=== PATIENT | female | born 1935 | race Caucasian/White ===

== ENCOUNTER 2018-05-24 12:54 | Observation (INO) ==
[2018-05-24] MEDS ORDERED: ONDANSETRON 4 MG/2 ML VIAL IV STA (13:10)
[2018-05-24] MEDS ORDERED: ASPIRIN 325 MG TABLET PO STA (13:10)
[2018-05-24 13:22] LABS: Basophils # 0.1 10*3/uL (0.0-0.2); Basophils % 0.6 % (0.0-0.8); Eosinophils # 0.4 10*3/uL (0.0-0.87); Eosinophils % 3.9 % (0.00-10.9); Hematocrit 43.7 VOL% (35.7-47.0); Hemoglobin 14.5 GM/DL (12.0-16.0); Immature Granulocytes % 0.2 %; Immature Granulocytes Absolute 0.02 #; Lymphocytes % 32.7 % (21.3-54.2); Mean Corpuscular HGB Conc 33.2 GM/DL (32-36); Mean Corpuscular Hemoglobin 30 PG (27-34); Mean Corpuscular Volume 90.1 FL (87-102); Monocytes # 0.6 10*3/uL (0.11-0.8); Monocytes % 6.4 % (1.7-12.7); Neutrophils # 5.2 10*3/uL (1.4-7.4); Neutrophils % 56.2 % (38.7-73.9); Platelet Count 225 T/CUMM (130-400); Red Blood Count 4.85 MC/CUMM (3.8-5.5); Red Cell Distribution Width 12.9 % (9.3-17.3); White Blood Count 9.3 T/CUMM (4-12)
[2018-05-24 13:33] LABS: INR 0.9; PT Patient Result 9.5 SECS; Partial Thromboplastin Time 23.5 SECS (0-40)
[2018-05-24 13:45] LABS: Albumin 3.8 G/DL (3.4-5.0); Bilirubin,Total 0.5 MG/DL (0.2-1.0); Calcium 9.1 MG/DL (8.5-10.1); Osmolality,Calculated 279.4 MOS/KG (273-304); Potassium 4.1 MMOL/L (3.5-5.1); Total Protein 7.6 G/DL (6.4-8.3)
[2018-05-24] MEDS ORDERED: ALUM/MAG/SIMETH/LIDO VISC 1:1 30 ML BOTTLE PO STA (13:54)
[2018-05-24 14:47] LABS: Apearance,Urine CLEAR (Clear); Bilirubin,Urine Negative (Negative); Blood, Urine Negative (Negative); Glucose,Urine (UA) Negative (Negative); Ketones,Urine Negative (Negative); Nitrite,Urine Negative (Negative); Protein,Urine Negative; RBC,Urine <1 /HPF (0-4); Squamous Epithelial Cell,Urine Occasional /HPF (0-10); Transitional Epi Cells,Urine Occasional /HPF (<1); Urine Color Straw (Yellow); Urine Specific Gravity 1.004 (1.001-1.035); Urine Urobilinogen < 2.0 EU/DL (0.2-1.0); WBC,Urine 1 /HPF (0-6)
[2018-05-24 14:57] LABS: Barbiturates Screen,Urine Negative (Negative); Benzodiazepines Screen,Urine Negative (Negative); Cannabinoid Screen,Urine Negative (Negative); Opiate Screen,Urine Positive (Negative); Phencyclidine Screen,Urine Negative (Negative)
[2018-05-24] MEDS ORDERED: FUROSEMIDE 20 MG TABLET PO PRN (15:15)
[2018-05-24] MEDS ORDERED: POTASSIUM CHLORIDE 20 MEQ TABLET PO PRN (15:15)
[2018-05-24] MEDS ORDERED: INFLUENZA VIRUS VACCINE 0.5 ML SYRINGE IM ONE (18:14)
[2018-05-24] MEDS: CLOPIDOGREL 75 MG TABLET PO SCH (20:23)
[2018-05-24] MEDS ORDERED: amLODIPine 5 MG TABLET PO SCH (21:00)
[2018-05-24] MEDS: ENOXAPARIN 40 MG/0.4 ML SYRINGE SUBCUT SCH (21:30)
[2018-05-24] MEDS ORDERED: ONDANSETRON 4 MG/2 ML VIAL IV PRN (23:41)
[2018-05-25] MEDS ORDERED: CYANOCOBALAMIN 1000 MCG/1 ML VIAL IM SCH (09:00)
[2018-05-25] MEDS ORDERED: PANTOPRAZOLE 40 MG TABLET PO SCH (09:00)
[2018-05-25 09:58] LABS: Risk Ratio 2.72; VLDL CHOLESTEROL 20.6 MG/DL
[2018-05-25] MEDS: LOSARTAN 50 MG TABLET PO SCH (11:07)
[2018-05-25] MEDS: ASPIRIN EC 325 MG TABLET PO SCH (11:07)
[2018-05-25] MEDS: PANTOPRAZOLE 40 MG TABLET PO SCH (11:08)
[2018-05-25] MEDS: predniSONE 10 MG TABLET PO SCH (11:08)
[2018-05-25] MEDS: ENOXAPARIN 40 MG/0.4 ML SYRINGE SUBCUT SCH (22:01)
[2018-05-25] MEDS: CLOPIDOGREL 75 MG TABLET PO SCH (22:01)
[2018-05-26 04:38] LABS: Basophils % 0.3 % (0.0-0.8); Eosinophils # 0.3 10*3/uL (0.0-0.87); Eosinophils % 3.3 % (0.00-10.9); Hematocrit 42.9 VOL% (35.7-47.0); Hemoglobin 13.9 GM/DL (12.0-16.0); Immature Granulocytes % 0.3 %; Immature Granulocytes Absolute 0.02 #; Lymphocytes # 2.8 10*3/uL (1.4-4.0); Lymphocytes % 35.9 % (21.3-54.2); Mean Corpuscular HGB Conc 32.4 GM/DL (32-36); Mean Corpuscular Hemoglobin 30 PG (27-34); Mean Corpuscular Volume 91.3 FL (87-102); Mean Platelet Volume 9.1 FL (9.6-12.0); Monocytes # 0.5 10*3/uL (0.11-0.8); Monocytes % 6.4 % (1.7-12.7); Neutrophils # 4.2 10*3/uL (1.4-7.4); Neutrophils % 53.8 % (38.7-73.9); Platelet Count 217 T/CUMM (130-400); Red Cell Distribution Width 12.8 % (9.3-17.3); White Blood Count 7.8 T/CUMM (4-12)
[2018-05-26 05:06] LABS: Calcium 8.7 MG/DL (8.5-10.1); Osmolality,Calculated 279.3 MOS/KG (273-304); Potassium 3.9 MMOL/L (3.5-5.1)
[2018-05-26] MEDS: PANTOPRAZOLE 40 MG TABLET PO SCH (08:45)
[2018-05-26] MEDS: ASPIRIN EC 325 MG TABLET PO SCH (08:45)
[2018-05-26] MEDS: LOSARTAN 50 MG TABLET PO SCH (08:45)
[2018-05-26] MEDS: predniSONE 10 MG TABLET PO SCH (08:46)
[2018-05-26] MEDS ORDERED: POLYETHYLENE GLYCOL POWDER 255 GM BOTTLE PO ONE (10:43)
[2018-05-26 11:31] VITALS: BP 130/67
[2018-05-26] MEDS ORDERED: POLYETHYLENE GLYCOL POWDER 17 GM PACK PO SCH (13:30)
[2018-05-26] MEDS ORDERED: amLODIPine 10 MG TABLET PO SCH (21:00)
== END 2018-05-26 16:40 | disposition home or self-care (01) ==
LOC: N.ED 12:54 → N.EDINP 12:54 → N.TELES 16:37
PROVIDERS: ADMIT Internal Medicine; ATTEND Internal Medicine

== ENCOUNTER 2018-07-20 11:56 | Observation (INO) ==
[2018-07-20] MEDS ORDERED: SODIUM CHLORIDE 0.9% 1,000 ML IV STA (12:14)
[2018-07-20] MEDS ORDERED: ONDANSETRON 4 MG/2 ML VIAL IV STA (12:14)
[2018-07-20 13:13] LABS: Basophils % 0.4 % (0.0-0.8); Eosinophils # 0.1 10*3/uL (0.0-0.87); Eosinophils % 0.7 % (0.00-10.9); Hematocrit 49.7 VOL% (35.7-47.0); Hemoglobin 16.3 GM/DL (12.0-16.0); Immature Granulocytes % 0.3 %; Immature Granulocytes Absolute 0.03 #; Lymphocytes % 21.2 % (21.3-54.2); Mean Corpuscular HGB Conc 32.8 GM/DL (32-36); Mean Corpuscular Hemoglobin 30 PG (27-34); Mean Platelet Volume 9.1 FL (9.6-12.0); Monocytes # 0.5 10*3/uL (0.11-0.8); Monocytes % 4.9 % (1.7-12.7); Neutrophils # 6.9 10*3/uL (1.4-7.4); Neutrophils % 72.5 % (38.7-73.9); Platelet Count 285 T/CUMM (130-400); Red Blood Count 5.52 MC/CUMM (3.8-5.5); Red Cell Distribution Width 12.7 % (9.3-17.3); White Blood Count 9.5 T/CUMM (4-12)
[2018-07-20 13:28] LABS: Apearance,Urine CLEAR (Clear); Bilirubin,Urine Negative (Negative); Blood, Urine Small mg/dL (Negative); Glucose,Urine (UA) Negative (Negative); Hyaline Casts,Urine 1 /LPF (0-3); Ketones,Urine 5 mg/dL (Negative); Mucus,Urine Occasional /LPF (Occasional); Nitrite,Urine Negative (Negative); Protein,Urine Negative; RBC,Urine 4 /HPF (0-4); Renal Epithelial Cells,Urine Occasional /HPF (<1); Urine Color Yellow (Yellow); Urine Specific Gravity 1.008 (1.001-1.035); Urine Urobilinogen < 2.0 EU/DL (0.2-1.0); WBC,Urine 1 /HPF (0-6)
[2018-07-20 13:29] LABS: Albumin 4.3 G/DL (3.4-5.0); Calcium 9.7 MG/DL (8.5-10.1); Osmolality,Calculated 277.4 MOS/KG (273-304); Potassium 3.5 MMOL/L (3.5-5.1); Total Protein 9.2 G/DL (6.4-8.3)
[2018-07-20] MEDS ORDERED: PROMETHAZINE 25 MG/1 ML VIAL ONE (14:19)
[2018-07-20] MEDS ORDERED: PROMETHAZINE 25 MG/1 ML VIAL IM STA (14:20)
[2018-07-20] MEDS ORDERED: ACETAMINOPHEN 325 MG TABLET PO PRN (16:47)
[2018-07-20] MEDS: POTASSIUM CHLORIDE INJ 20 MEQ in SODIUM CHLORIDE 0.45% 1,000 ML IV SCH (19:19)
[2018-07-20] MEDS: ONDANSETRON 4 MG/2 ML VIAL IV PRN (19:36)
[2018-07-20] MEDS: ENOXAPARIN 40 MG/0.4 ML SYRINGE SUBCUT SCH (19:40)
[2018-07-20] MEDS: ZALEPLON 5 MG CAPSULE PO PRN (21:46)
[2018-07-20] MEDS: amLODIPine 5 MG TABLET PO SCH (21:46)
[2018-07-20] MEDS: CLOPIDOGREL 75 MG TABLET PO SCH (21:46)
[2018-07-20] MEDS: PROMETHAZINE 25 MG/1 ML VIAL IM PRN (21:47)
[2018-07-20] MEDS: BUDESONIDE/FORMOTEROL 160-4.5 INHALER 6 GM INH SCH (21:53)
[2018-07-21] MEDS: ONDANSETRON 4 MG/2 ML VIAL IV PRN (00:33)
[2018-07-21] MEDS: ZALEPLON 5 MG CAPSULE PO PRN (02:00)
[2018-07-21] MEDS: PROMETHAZINE 25 MG/1 ML VIAL IM PRN (04:18)
[2018-07-21] MEDS: POTASSIUM CHLORIDE INJ 20 MEQ in SODIUM CHLORIDE 0.45% 1,000 ML IV SCH (04:40)
[2018-07-21 06:47] LABS: Basophils % 0.5 % (0.0-0.8); Eosinophils # 0.1 10*3/uL (0.0-0.87); Eosinophils % 0.7 % (0.00-10.9); Hematocrit 43.6 VOL% (35.7-47.0); Hemoglobin 14.2 GM/DL (12.0-16.0); Immature Granulocytes % 0.4 %; Immature Granulocytes Absolute 0.03 #; Lymphocytes # 1.9 10*3/uL (1.4-4.0); Lymphocytes % 23.5 % (21.3-54.2); Mean Corpuscular HGB Conc 32.6 GM/DL (32-36); Mean Corpuscular Hemoglobin 29 PG (27-34); Mean Corpuscular Volume 89.7 FL (87-102); Mean Platelet Volume 9.2 FL (9.6-12.0); Monocytes # 0.6 10*3/uL (0.11-0.8); Monocytes % 7.3 % (1.7-12.7); Neutrophils # 5.4 10*3/uL (1.4-7.4); Neutrophils % 67.6 % (38.7-73.9); Platelet Count 245 T/CUMM (130-400); Red Blood Count 4.86 MC/CUMM (3.8-5.5); Red Cell Distribution Width 12.5 % (9.3-17.3)
[2018-07-21 07:11] LABS: Albumin 3.3 G/DL (3.4-5.0); Bilirubin,Total 1.1 MG/DL (0.2-1.0); Calcium 8.6 MG/DL (8.5-10.1); Osmolality,Calculated 274.5 MOS/KG (273-304); Potassium 3.4 MMOL/L (3.5-5.1); Total Protein 7.2 G/DL (6.4-8.3)
[2018-07-21] MEDS: LOSARTAN 50 MG TABLET PO SCH (10:13)
[2018-07-21] MEDS: BUDESONIDE/FORMOTEROL 160-4.5 INHALER 6 GM INH SCH ×2 (10:14→21:56)
[2018-07-21] MEDS: PANTOPRAZOLE 40 MG TABLET PO SCH (10:16)
[2018-07-21] MEDS: SODIUM CHLOR 0.45% KCL 20 MEQ 20 MEQ/1,000 ML BAG IV SCH ×2 (14:50→18:20)
[2018-07-21] MEDS: ENOXAPARIN 40 MG/0.4 ML SYRINGE SUBCUT SCH (18:10)
[2018-07-21] MEDS: amLODIPine 5 MG TABLET PO SCH (21:55)
[2018-07-21] MEDS: PROCHLORPERAZINE 5 MG TABLET PO SCH (21:56)
[2018-07-21] MEDS: CHOLESTYRAMINE 4 GM PACK PO SCH (21:56)
[2018-07-21] MEDS: CLOPIDOGREL 75 MG TABLET PO SCH (21:58)
[2018-07-22] MEDS: SODIUM CHLOR 0.45% KCL 20 MEQ 20 MEQ/1,000 ML BAG IV SCH ×2 (00:45→16:03)
[2018-07-22] MEDS: ONDANSETRON 4 MG/2 ML VIAL IV PRN ×2 (08:23→12:52)
[2018-07-22] MEDS ORDERED: PROPOFOL 200 MG/20 ML VIAL IV ONE (09:00)
[2018-07-22] MEDS ORDERED: LIDOCAINE 2% 5 ML VIAL ONE (09:00)
[2018-07-22] MEDS: PANTOPRAZOLE 40 MG TABLET PO SCH (16:08)
[2018-07-22] MEDS: LOSARTAN 50 MG TABLET PO SCH (16:09)
[2018-07-22] MEDS: BUDESONIDE/FORMOTEROL 160-4.5 INHALER 6 GM INH SCH ×2 (16:09→21:24)
[2018-07-22] MEDS: CHOLESTYRAMINE 4 GM PACK PO SCH ×2 (16:09→21:25)
[2018-07-22] MEDS: PROCHLORPERAZINE 5 MG TABLET PO SCH ×3 (16:10→21:24)
[2018-07-22] MEDS: ENOXAPARIN 40 MG/0.4 ML SYRINGE SUBCUT SCH (17:40)
[2018-07-22] MEDS: amLODIPine 5 MG TABLET PO SCH (21:23)
[2018-07-22] MEDS: CLOPIDOGREL 75 MG TABLET PO SCH (21:23)
[2018-07-22] MEDS: PANTOPRAZOLE 40 MG VIAL IV SCH (21:25)
[2018-07-22] MEDS: ZALEPLON 5 MG CAPSULE PO PRN (23:38)
[2018-07-23 05:12] LABS: Basophils # 0.1 10*3/uL (0.0-0.2); Basophils % 0.9 % (0.0-0.8); Eosinophils # 0.4 10*3/uL (0.0-0.87); Eosinophils % 6.9 % (0.00-10.9); Hematocrit 39.1 VOL% (35.7-47.0); Hemoglobin 12.7 GM/DL (12.0-16.0); Immature Granulocytes % 0.3 %; Immature Granulocytes Absolute 0.02 #; Lymphocytes # 2.7 10*3/uL (1.4-4.0); Lymphocytes % 42.3 % (21.3-54.2); Mean Corpuscular HGB Conc 32.5 GM/DL (32-36); Mean Corpuscular Hemoglobin 29 PG (27-34); Mean Corpuscular Volume 90.5 FL (87-102); Mean Platelet Volume 9.3 FL (9.6-12.0); Monocytes # 0.6 10*3/uL (0.11-0.8); Monocytes % 9.2 % (1.7-12.7); Neutrophils # 2.6 10*3/uL (1.4-7.4); Neutrophils % 40.4 % (38.7-73.9); Platelet Count 225 T/CUMM (130-400); Red Blood Count 4.32 MC/CUMM (3.8-5.5); Red Cell Distribution Width 12.5 % (9.3-17.3); White Blood Count 6.4 T/CUMM (4-12)
[2018-07-23] MEDS: ONDANSETRON 4 MG/2 ML VIAL IV PRN (05:32)
[2018-07-23 05:38] LABS: Calcium 8.4 MG/DL (8.5-10.1); Potassium 3.7 MMOL/L (3.5-5.1)
[2018-07-23] MEDS: CHOLESTYRAMINE 4 GM PACK PO SCH (09:54)
[2018-07-23] MEDS: LOSARTAN 50 MG TABLET PO SCH (09:54)
[2018-07-23] MEDS: PROCHLORPERAZINE 5 MG TABLET PO SCH (09:54)
[2018-07-23] MEDS: PANTOPRAZOLE 40 MG VIAL IV SCH (09:55)
[2018-07-23] MEDS: BUDESONIDE/FORMOTEROL 160-4.5 INHALER 6 GM INH SCH (09:59)
[2018-07-23 11:59] VITALS: BP 160/75
[2018-07-23] MEDS ORDERED: ONDANSETRON 4 MG TABLET PO PRN (12:36)
[2018-07-23] MEDS ORDERED: PANTOPRAZOLE 40 MG TABLET PO SCH (21:00)
== END 2018-07-23 15:00 | disposition home or self-care (01) ==
LOC: N.EDINP 11:56 → N.ED 11:56 → N.3E 17:55
PROVIDERS: ADMIT Hospitalist; ATTEND Hospitalist

== ENCOUNTER 2019-06-02 15:48 | Observation (INO) ==
[2019-06-02] MEDS ORDERED: ASPIRIN 325 MG TABLET PO STA (16:23)
[2019-06-02] MEDS ORDERED: ONDANSETRON 4 MG/2 ML VIAL IV STA (16:23)
[2019-06-02] MEDS ORDERED: ALUM/MAG/SIMETH/LIDO VISC 1:1 30 ML BOTTLE PO STA (16:23)
[2019-06-02 16:35] LABS: Basophils % 0.6 % (0.0-0.8); Eosinophils # 0.2 10*3/uL (0.0-0.87); Eosinophils % 2.7 % (0.00-10.9); Hematocrit 40.9 VOL% (35.7-47.0); Hemoglobin 13.3 GM/DL (12.0-16.0); Immature Granulocytes % 0.3 %; Immature Granulocytes Absolute 0.02 #; Lymphocytes # 1.6 10*3/uL (1.4-4.0); Lymphocytes % 23.5 % (21.3-54.2); Mean Corpuscular HGB Conc 32.5 GM/DL (32-36); Mean Corpuscular Volume 91.9 FL (87-102); Mean Platelet Volume 9.1 FL (9.6-12.0); Monocytes % 7.3 % (1.7-12.7); Neutrophils % 65.6 % (38.7-73.9); Platelet Count 251 T/CUMM (130-400); Red Blood Count 4.45 MC/CUMM (3.8-5.5); Red Cell Distribution Width 12.2 % (9.3-17.3); White Blood Count 6.7 T/CUMM (4-12)
[2019-06-02 16:41] LABS: INR 0.9; PT Patient Result 9.8 SECS (9.6-12.2)
[2019-06-02 16:53] LABS: Albumin 3.6 G/DL (3.4-5.0); Bilirubin,Total 0.5 MG/DL (0.2-1.0); Calcium 8.9 MG/DL (8.5-10.1); Osmolality,Calculated 279.3 MOS/KG (273-304); Total Protein 7.2 G/DL (6.4-8.3)
[2019-06-02 17:15] LABS: Apearance,Urine CLEAR (Clear); Bacteria,Urine Occasional /HPF (Few); Bilirubin,Urine Negative (Negative); Blood, Urine Small mg/dL (Negative); Glucose,Urine (UA) Negative (Negative); Ketones,Urine Negative (Negative); Mucus,Urine Occasional /LPF (Occasional); Nitrite,Urine Negative (Negative); Protein,Urine Negative; RBC,Urine 5 /HPF (0-4); Squamous Epithelial Cell,Urine Occasional /HPF (0-10); Urine Color Straw (Yellow); Urine Specific Gravity 1.004 (1.001-1.035); Urine Urobilinogen < 2.0 EU/DL (0.2-1.0); WBC,Urine 1 /HPF (0-6)
[2019-06-02] MEDS ORDERED: FUROSEMIDE 20 MG TABLET PO PRN (17:59)
[2019-06-02] MEDS ORDERED: POTASSIUM CHLORIDE 20 MEQ TABLET PO PRN (17:59)
[2019-06-02] MEDS ORDERED: NIFEdipine 10 MG CAPSULE PO PRN (18:01)
[2019-06-02] MEDS ORDERED: CLOPIDOGREL 75 MG TABLET PO SCH (21:00)
[2019-06-02] MEDS ORDERED: ENOXAPARIN 30 MG/0.3 ML SYRINGE SUBCUT SCH (21:00)
[2019-06-02] MEDS ORDERED: amLODIPine 5 MG TABLET PO SCH (21:00)
[2019-06-02] MEDS: LOSARTAN 50 MG TABLET PO SCH (22:24)
[2019-06-02] MEDS: METOPROLOL TARTRATE 25 MG TABLET PO SCH (22:24)
[2019-06-02] MEDS: PANTOPRAZOLE 40 MG TABLET PO SCH (22:29)
[2019-06-03 06:04] LABS: Blood Urea Nitrogen 11 MG/DL (7-18); Calcium 8.9 MG/DL (8.5-10.1); Estimated Glom Filtration Rate 64 ML/MIN; Glucose 101 MG/DL (74-106); Osmolality,Calculated 277.4 MOS/KG (273-304); Troponin I < 0.015 NG/ML (0.00-0.045)
[2019-06-03] MEDS: LOSARTAN 50 MG TABLET PO SCH (09:25)
[2019-06-03] MEDS: PANTOPRAZOLE 40 MG TABLET PO SCH (09:25)
[2019-06-03] MEDS: METOPROLOL TARTRATE 25 MG TABLET PO SCH (09:26)
[2019-06-03 11:25] VITALS: BP 113/64
== END 2019-06-03 14:00 | disposition home or self-care (01) ==
LOC: EDBD → EDUNIT# → N.ED 15:48 → N.EDINP 18:01 → INTOOBSV 18:01 → SUATTDRO 18:01 → N.TELEN 19:03
PROVIDERS: ADMIT Internal Medicine; ATTEND Family Medicine

== ENCOUNTER 2019-08-28 17:07 | Observation (INO) ==
[2019-08-28] MEDS ORDERED: LACTATED RINGERS 500 ML IV ONE (17:36)
[2019-08-28 17:48] LABS: Basophils # 0.1 10*3/uL (0.0-0.2); Basophils % 0.7 % (0.0-0.8); Eosinophils # 0.2 10*3/uL (0.0-0.87); Eosinophils % 2.3 % (0.00-10.9); Hematocrit 44.9 VOL% (35.7-47.0); Hemoglobin 14.7 GM/DL (12.0-16.0); Immature Granulocytes % 0.2 %; Immature Granulocytes Absolute 0.02 #; Lymphocytes # 2.5 10*3/uL (1.4-4.0); Lymphocytes % 28.5 % (21.3-54.2); Mean Corpuscular HGB Conc 32.7 GM/DL (32-36); Mean Corpuscular Volume 90.7 FL (87-102); Mean Platelet Volume 9.6 FL (9.6-12.0); Monocytes % 6.8 % (1.7-12.7); Neutrophils % 61.5 % (38.7-73.9); Platelet Count 244 T/CUMM (130-400); Red Blood Count 4.95 MC/CUMM (3.8-5.5); Red Cell Distribution Width 13.2 % (9.3-17.3); White Blood Count 8.6 T/CUMM (4-12)
[2019-08-28 17:59] LABS: INR 0.9; PT Patient Result 10.2 SECS (9.6-12.2)
[2019-08-28 18:14] LABS: Albumin 3.9 G/DL (3.4-5.0); Bilirubin,Total 0.7 MG/DL (0.2-1.0); Calcium 9.3 MG/DL (8.5-10.1); Osmolality,Calculated 275.5 MOS/KG (273-304); Total Protein 7.7 G/DL (6.4-8.3)
[2019-08-28 18:26] LABS: Apearance,Urine CLEAR (Clear); Bilirubin,Urine Negative (Negative); Blood, Urine Small mg/dL (Negative); Glucose,Urine (UA) Negative (Negative); Ketones,Urine Negative (Negative); Nitrite,Urine Negative (Negative); Protein,Urine Negative; RBC,Urine 3 /HPF (0-4); Urine Color Yellow (Yellow); Urine Specific Gravity 1.006 (1.001-1.035); WBC,Urine <1 /HPF (0-6)
[2019-08-28] MEDS ORDERED: FUROSEMIDE 20 MG TABLET PO PRN (19:23)
[2019-08-28] MEDS ORDERED: POTASSIUM CHLORIDE 20 MEQ TABLET PO PRN (19:23)
[2019-08-28 19:55] LABS: Risk Ratio 2.86; VLDL CHOLESTEROL 19.8 MG/DL
[2019-08-28] MEDS: SODIUM CHLORIDE 0.9% 1,000 ML IV SCH (19:55)
[2019-08-28] MEDS ORDERED: LABETALOL 20 MG/4 ML SYRINGE IV PRN (20:00)
[2019-08-28] MEDS: AMITRIPTYLINE 25 MG TABLET PO SCH (23:12)
[2019-08-28] MEDS: DICYCLOMINE 10 MG CAPSULE PO SCH (23:13)
[2019-08-29 01:45] LABS: Basophils # 0.1 10*3/uL (0.0-0.2); Basophils % 0.7 % (0.0-0.8); Eosinophils # 0.3 10*3/uL (0.0-0.87); Eosinophils % 3.9 % (0.00-10.9); Hematocrit 40.6 VOL% (35.7-47.0); Hemoglobin 13.4 GM/DL (12.0-16.0); Immature Granulocytes % 0.1 %; Immature Granulocytes Absolute 0.01 #; Lymphocytes # 2.1 10*3/uL (1.4-4.0); Lymphocytes % 30.2 % (21.3-54.2); Mean Corpuscular Volume 90.4 FL (87-102); Mean Platelet Volume 9.2 FL (9.6-12.0); Monocytes % 8.1 % (1.7-12.7); Platelet Count 224 T/CUMM (130-400); Red Blood Count 4.49 MC/CUMM (3.8-5.5); Red Cell Distribution Width 12.3 % (9.3-17.3); White Blood Count 6.9 T/CUMM (4-12)
[2019-08-29 02:01] LABS: Calcium 8.5 MG/DL (8.5-10.1); Osmolality,Calculated 284.8 MOS/KG (273-304)
[2019-08-29] MEDS: ONDANSETRON 4 MG/2 ML VIAL IV PRN ×2 (03:30→22:06)
[2019-08-29] MEDS ORDERED: POTASSIUM CHLORIDE 20 MEQ TABLET PO PRN (07:47)
[2019-08-29] MEDS: BUDESONIDE/FORMOTEROL 160-4.5 INHALER 6 GM INH SCH ×2 (10:31→21:05)
[2019-08-29] MEDS: LOSARTAN 50 MG TABLET PO SCH (10:32)
[2019-08-29] MEDS: PANTOPRAZOLE 40 MG TABLET PO SCH (10:32)
[2019-08-29] MEDS: amLODIPine 5 MG TABLET PO SCH (10:32)
[2019-08-29] MEDS: DICYCLOMINE 10 MG CAPSULE PO SCH ×2 (10:32→21:05)
[2019-08-29] MEDS: SODIUM CHLORIDE 0.9% 1,000 ML IV SCH (10:33)
[2019-08-29] MEDS: CLOPIDOGREL 75 MG TABLET PO SCH (10:33)
[2019-08-29] MEDS: AMITRIPTYLINE 25 MG TABLET PO SCH (21:05)
[2019-08-30] MEDS: DICYCLOMINE 10 MG CAPSULE PO SCH (09:52)
[2019-08-30] MEDS: amLODIPine 5 MG TABLET PO SCH (09:52)
[2019-08-30] MEDS: LOSARTAN 50 MG TABLET PO SCH (09:52)
[2019-08-30] MEDS: CLOPIDOGREL 75 MG TABLET PO SCH (09:53)
[2019-08-30] MEDS: PANTOPRAZOLE 40 MG TABLET PO SCH (09:53)
[2019-08-30] MEDS: BUDESONIDE/FORMOTEROL 160-4.5 INHALER 6 GM INH SCH (09:53)
[2019-08-30 10:13] VITALS: BP 123/75
[2019-09-03] MEDS ORDERED: CYANOCOBALAMIN 1000 MCG/1 ML VIAL IM SCH (09:00)
== END 2019-08-30 09:32 | disposition home or self-care (01) ==
LOC: N.EDINP 17:07 → N.ED 17:07 → SUPCPDRO 20:45 → SUATTDRO 20:45 → N.4E 21:25
PROVIDERS: ADMIT Internal Medicine; ATTEND Family Medicine